=== PATIENT | female | born 1965 | race Caucasian/White ===

== ENCOUNTER 2016-06-21 10:25 | Emergency (ER) | payer OTHER ==
[2016-06-21 10:57] LABS: BASOPHIL 0.6 % (0-2); EOSINOPHIL 4.7 % (0-5); HCT 33.9 % (37.0-47.0); HGB 10.7 g/dl (12.5-16.0); LYMPHOCYTE 41.5 % (15-48); MCH 26.4 pg (25.0-31.0); MCHC 31.6 g/dL (32.0-36.0); MCV 83.5 fL (78.0-100.0); MONOCYTE 6.5 % (0-12); MPV 9.9 fL (6.0-9.5); NEUTROPHIL 46.7 % (41-80); PLT 230 K/uL (150-400); RBC 4.06 M/uL (4.20-5.40); RDW 17.6 % (11.5-14.0); WBC 3.4 K/uL (4.0-10.5)
[2016-06-21 11:02] LABS: PTT 27.8 SECONDS (23.2-31.4)
[2016-06-21 11:03] LABS: INR 1.08 (0.9-1.2); PROTHROMBIN TIME 13.6 SECONDS (11.7-14.0)
[2016-06-21 11:12] LABS: ALBUMIN 4.1 g/dL (3.5-5.0); BILIRUBIN - TOTAL 0.3 mg/dL (0.1-1.0); CREATININE 0.8 mg/dL (0.5-1.0); GLOBULIN (CALCULATION) 2.6 g/dL (2.2-4.2); MAGNESIUM 1.81 mg/dL (1.40-2.10); POTASSIUM 3.2 mmol/L (3.5-5.1); TOTAL PROTEIN 6.7 g/dL (6.4-8.3)
[2016-06-21 11:13] LABS: MYOGLOBIN 21 ng/mL (26-65); PRO-BNP 112 pg/mL (0-125); TROPONIN T < 0.010 ng/mL
== END 2016-06-21 20:05 | disposition other institution (70) ==
LOC: FER 10:25
PROVIDERS: Emergency Medicine
DX: R04.2 Hemoptysis (principal); R06.02 Shortness of breath; I20.9 Angina pectoris, unspecified; J44.9 Chronic obstructive pulmonary disease, unspecified; F17.210 Nicotine dependence, cigarettes, uncomplicated; Z88.5 Allergy status to narcotic agent; Z79.82 Long term (current) use of aspirin; Z79.899 Other long term (current) drug therapy
CPT/HCPCS: 36415; 71010; 71275; 80053; 82550; 82553; 83735; 83874; 83880; 84484; 85025; 85610; 85730; 93005; 94640; J2930; Q9967